=== PATIENT | male | born 1950 | race Hispanic/Latino ===

== ENCOUNTER → 2017-11-29 | Outpatient (CLI) | payer MEDICARE ==
[~2017-11-29] MED LIST: CLONIDINE HCL0.1 MG PO; DIOVAN HCT 3201 EACH PO; METOPROLOL TAR100 MG PO
[2017-11-29 13:15] LABS: BASOPHILS # (AUTO) 0.1 (0.0-0.1); BASOPHILS % 0.9 % (0.0-1.0); EOSINOPHILS # (AUTO) 0.2 (0.0-0.4); EOSINOPHILS % 1.8 % (0.0-6.0); HEMATOCRIT 42.3 % (38.2-49.6); HEMOGLOBIN 14.4 g/dL (14.0-18.0); LYMPHOCYTES # (AUTO) 1.7 (1.0-3.2); LYMPHOCYTES % 20.5 % (18.0-39.1); MEAN CORPUSCULAR HEMOGLOBIN 31.5 pg (28-32); MEAN CORPUSCULAR VOLUME 92.6 fL (81-99); MONOCYTES # (AUTO) 0.9 (0.2-0.8); NEUTROPHILS # (AUTO) 5.3 (2.1-6.9); NEUTROPHILS % 64.9 % (38.7-80.0); PLATELET COUNT 246 x10e3/uL (140-360); RED BLOOD COUNT 4.57 x10e6/uL (4.3-5.7)
[2017-11-29 13:42] LABS: ANION GAP 13.6 mmol/L (8-16); CALCIUM 9.3 mg/dL (8.4-10.2); CREATININE, SERUM 1.48 mg/dL (0.72-1.25); POTASSIUM 3.6 mmol/L (3.5-5.1)
--- NOTE | 2017-11-29 14:09 | Diagnostic Imaging Report ---
PROCEDURE: Frontal and lateral views of the chest. COMPARISON: None. INDICATIONS: PRE OPERATIVE CHEST X-RAY FOR TIBIA FRACTURE FINDINGS: Lines/tubes: None. Lungs: The lungs are well inflated and clear. Central vascular congestion. Pleura: There is no pleural effusion or pneumothorax. Heart and mediastinum: Mildly enlarged cardiomediastinal silhouette. Bones: No acute bony abnormality. IMPRESSION: Mildly enlarged cardiomediastinal silhouette and central vascular congestion. Dictated by: Mich More M.D. on 11/29/2017 at 14:17 Electronically approved by: Mich More M.D. on 11/29/2017 at 14:17
--- NOTE | 2017-12-17 13:27 | Discharge Summary ---
CHIEF COMPLAINT: Right knee pain. HISTORY OF PRESENT ILLNESS: This patient is a 67-year-old male who complains of right knee pain since falling on November 19, 2017. His x-rays show a nondisplaced fracture of the proximal tibial shaft. The options were discussed with the patient. The risks and benefits of an open reduction and internal fixation were discussed. The patient states he understands and wishes to proceed. HOSPITAL COURSE: The patient underwent open reduction and internal fixation of the right proximal tibia without complications. He was then transferred to the recovery room in stable condition. He was able to be discharged from the recovery room after adequate pain control and sent home. PRINCIPAL DIAGNOSIS: Right proximal tibia fracture. PRINCIPAL PROCEDURE: Open reduction and internal fixation of the right tibia. DISCHARGE INSTRUCTIONS: The patient was discharged home. He was to be touchdown weightbearing with a walker and wear a hinged knee brace. He was to resume all his home medications as directed. He was to follow up in our office in roughly 8 to 10 days. Dictated by: Prashant Napoles PA-C LARISSA BRIGHT MD Job#: [id number] EV
== END ==
LOC: RAD 12:00 → OR 11-30 09:53 → EDSTATUS 11-30 12:00
PROVIDERS: ATTEND Specialist
DX: Z01.818 Encounter for other preprocedural examination (principal); S82.234A Nondisplaced oblique fracture of shaft of right tibia, initial encounter for closed fracture; Z53.8 Procedure and treatment not carried out for other reasons
CPT/HCPCS: 36415; 71020; 80048; 85025; 93005

== ENCOUNTER → 2017-12-14 | Day surgery (SDC) | payer MEDICARE ==
[~2017-12-14] MED LIST changes: +BUPIVACAINE HCL 0.5% INJ 30 ML VIAL INJ ONE; +CEFAZOLIN SOD 1 GM VIAL ONE; +DEXAMETHASONE SOD PHOS INJ 4 MG/ML VIAL ONE; +FENTANYL CITRATE/PF 100MCG/2 ML INJ ONE; +LIDOCAINE HCL 2% LOCAL INJ 5 ML SDV VIAL INJ ONE; +MIDAZOLAM HCL 2 MG/2 ML VIAL ONE; +MORPHINE SULFATE INJ 10 MG/ML ONE; +NEOSTIGMINE 1 MG/ML 10ML VIAL ONE; +ONDANSETRON HCL INJ 2 MG/ML VIAL ONE; +PROPOFOL IV EMULSION 10 MG/ML 20 ML VIAL ONE; +SEVOFLURANE INHAL SOLN 250 ML PEN BTL ONE
--- NOTE | 2017-12-15 17:35 | Operative Report ---
DATE OF PROCEDURE: December 14, 2017 HOUSE NURSE: Prashant Napoles PA-C The patient was brought to the operating room for induction of anesthesia. Throughout this case, my PA's assistance was necessary for retraction of soft tissue and positioning of the extremity. This allows for efficient and technically successful execution of the operation and is considered medically necessary. PREOPERATIVE DIAGNOSIS: Right proximal tibia fracture. POSTOPERATIVE DIAGNOSIS: Right proximal tibia fracture. PROCEDURE: Open reduction and internal fixation right proximal tibia. INDICATIONS: The patient is a 67-year-old gentleman who sustained a fracture of his right proximal tibia. The findings and options were discussed. This was a nondisplaced fracture. The risks for displacement were discussed. The patient wished to proceed with an open reduction with internal fixation. He initially had this scheduled and was postponed due to cardiac arrhythmia. He has been cleared from a cardiac standpoint. The options were again discussed. I have explained the surgery is not entirely necessary in the absence of any displacement. The risk of displacement particularly concerns the patient with any mobilization. He does not wish to be in any type of long-leg cast. We plan on open reduction with internal fixation. DESCRIPTION OF PROCEDURE: The patient was brought to the operating room and placed under general anesthetic. His right lower extremity was prepped and draped in a sterile manner. A preoperative time out was performed. The extremity was exsanguinated, and a proximal tourniquet was inflated to 300 mmHg. A curvilinear incision was made over the proximal lateral aspect of the right tibia. The anterior compartment muscles were elevated off of the tibial spine. A [employer] periarticular locking plate was placed onto the proximal tibia. The positioning was checked with a C-arm image intensifier. This was locked with a combination of compression and locking screws. Intraoperative x-rays confirmed anatomic reduction and good placement of the hardware. The wound was irrigated. The fascia was reapproximated with 0 Vicryl. The skin was closed with subcuticular Vicryl and asia. A sterile bandage was applied. The patient was extubated and transported to the recovery room in stable condition. Job#: [id number] EV
--- NOTE | 2017-12-21 18:25 | Discharge Summary ---
CHIEF COMPLAINT: Right knee pain. HISTORY OF PRESENT ILLNESS: This patient is a 67-year-old male who complains of right knee pain since falling on November 19, 2017. His x-rays show a nondisplaced fracture of the proximal tibial shaft. The options were discussed with the patient. The risks and benefits of an open reduction and internal fixation were discussed. The patient states he understands and wishes to proceed. HOSPITAL COURSE: The patient underwent open reduction and internal fixation of the right proximal tibia without complications. He was then transferred to the recovery room in stable condition. He was able to be discharged from the recovery room after adequate pain control and sent home. PRINCIPAL DIAGNOSIS: Right proximal tibia fracture. PRINCIPAL PROCEDURE: Open reduction and internal fixation of the right tibia. DISCHARGE INSTRUCTIONS: The patient was discharged home. He was to be touchdown weightbearing with a walker and wear a hinged knee brace. He was to resume all his home medications as directed. He was to follow up in our office in roughly 8 to 10 days. Dictated by: Prashant Napoles PA-C LARISSA BRIGHT MD Job#: [id number]
== END | disposition home or self-care (01) ==
LOC: OR 05:18
PROVIDERS: ATTEND Specialist
DX: S82.234A Nondisplaced oblique fracture of shaft of right tibia, initial encounter for closed fracture (principal); I10 Essential (primary) hypertension; I48.91 Unspecified atrial fibrillation; W03.XXXA Other fall on same level due to collision with another person, initial encounter; Z87.01 Personal history of pneumonia (recurrent); Z87.891 Personal history of nicotine dependence
CPT/HCPCS: 27535; 76000; C1713 ×5; J0690; J1100; J2001; J2250; J2270; J2405; J2710

== ENCOUNTER → 2021-06-05 | Outpatient (CLI) | payer MEDICARE ==
[~2021-06-05] MED LIST changes: -BUPIVACAINE HCL 0.5% INJ 30 ML VIAL INJ ONE; -CEFAZOLIN SOD 1 GM VIAL ONE; -DEXAMETHASONE SOD PHOS INJ 4 MG/ML VIAL ONE; -FENTANYL CITRATE/PF 100MCG/2 ML INJ ONE; -LIDOCAINE HCL 2% LOCAL INJ 5 ML SDV VIAL INJ ONE; -MIDAZOLAM HCL 2 MG/2 ML VIAL ONE; -MORPHINE SULFATE INJ 10 MG/ML ONE; -NEOSTIGMINE 1 MG/ML 10ML VIAL ONE; -ONDANSETRON HCL INJ 2 MG/ML VIAL ONE; -PROPOFOL IV EMULSION 10 MG/ML 20 ML VIAL ONE; +REGADENOSON 0.4 MG/5 ML SYR IV ONE; -SEVOFLURANE INHAL SOLN 250 ML PEN BTL ONE
== END ==
LOC: NM 08:38
PROVIDERS: ATTEND Nurse Practitioner Family
DX: I20.8 Other forms of angina pectoris (principal); I10 Essential (primary) hypertension; I48.91 Unspecified atrial fibrillation
CPT/HCPCS: 78452; 93017; A9502; J2785

== ENCOUNTER 2024-11-02 09:53 | Day surgery (SDC) | payer MEDICARE ==
[2024-11-01 12:11] LABS: BASOPHILS # (AUTO) 0.1 (0.0-0.1); BASOPHILS % 0.9 % (0.0-1.0); EOSINOPHILS # (AUTO) 0.2 (0.0-0.4); EOSINOPHILS % 2.6 % (0.0-6.0); HEMATOCRIT 42.8 % (38.2-49.6); HEMOGLOBIN 13.7 g/dL (14.0-18.0); LYMPHOCYTES # (AUTO) 2.3 (1.0-3.2); LYMPHOCYTES % 24.6 % (18.0-39.1); MEAN CORPUSCULAR HEMOGLOBIN 29.8 pg (28-32); MONOCYTES % 10.3 % (4.4-11.3); NEUTROPHILS # (AUTO) 5.7 (2.1-6.9); NEUTROPHILS % 61.3 % (38.7-80.0); PLATELET COUNT 178 x10e3/uL (140-360); RED CELL DISTRIBUTION WIDTH 14.9 % (11.7-14.4); WHITE BLOOD COUNT 9.34 x10e3/uL (4.8-10.8)
[2024-11-01 12:39] LABS: ANION GAP 15.9 mmol/L (8-16); CALCIUM 9.4 mg/dL (8.4-10.2); CREATININE, SERUM 1.48 mg/dL (0.72-1.25); POTASSIUM 3.9 mmol/L (3.5-5.1)
[~2024-11-02] VITALS: Ht 177.8 cm; Wt 104.3 kg
[2024-11-02] VITALS (12 sets, daily range): BP systolic 106–152; BP diastolic 62–84; PULSE 52–66; RESP 15–27; TEMP 97–97.6; O2SAT 96–100
[~2024-11-02 09:53] MED LIST changes: +DIOVAN160 MG PO; +ELIQUIS5 MG PO; +HYDROCHLOROTHIA25 MG PO; +IRBESARTAN150 MG PO; +JULUCA 50-25 M1 EACH PO; +NIFEDIPINE ER30 M1 PO; +PRAVASTATIN SOD40 MG PO; -REGADENOSON 0.4 MG/5 ML SYR IV ONE; +SYNTHROID50 MCG PO
[2024-11-02] MEDS ORDERED: SODIUM CHLORIDE 0.9% 1000ML 1,000 ML ONE (12:07)
[2024-11-02] MEDS ORDERED: BENZOCAINE 20% SPR 60 ML CAN ONE (12:07)
[2024-11-02] MEDS ORDERED: LIDOCAINE HCL 2% LOCAL INJ 5 ML SDV VIAL INJ ONE ×2 (12:09→12:11)
[2024-11-02] MEDS ORDERED: PROPOFOL IV EMULSION 50 ML IV ONE (12:09)
[2024-11-02] MEDS ORDERED: PROPOFOL IV EMULSION 10 MG/ML 20 ML VIAL ONE (12:09)
[2024-11-02] MEDS ORDERED: GLYCOPYRROLATE INJ 0.2 MG/ML VIAL ONE (12:22)
[2024-11-02] MEDS ORDERED: PHENYLEPHRINE HCL 1% 10 MG/ML VIAL ONE (12:22)
[2024-11-02] MEDS ORDERED: KETAMINE 50MG/5ML SYR ONE (12:24)
== END 2024-11-02 15:05 | disposition home or self-care (01) ==
LOC: CATH LAB 09:53 → EDSTATUS 12:30 → CATH LAB 15:05
PROVIDERS: ATTEND Internal Medicine Interventional Cardiology
DX: I48.91 Unspecified atrial fibrillation (principal); I10 Essential (primary) hypertension; E66.9 Obesity, unspecified; Z95.818 Presence of other cardiac implants and grafts; Z01.812 Encounter for preprocedural laboratory examination; Z79.02 Long term (current) use of antithrombotics/antiplatelets; Z79.899 Other long term (current) drug therapy; Z68.33 Body mass index [BMI] 33.0-33.9, adult
CPT/HCPCS: 36415; 80048; 85025; 93320; 93325; C8925; J2003; J2371; J2704; J7030; 93307; 93312

== ENCOUNTER → 2024-12-11 | Outpatient (REF) | payer MEDICARE ==
[~2024-12-11] VITALS: Ht 177.8 cm; Wt 103.4 kg
[~2024-12-11] MED LIST changes: +BENZOCAINE 20% SPR 60 ML CAN ONE; +SODIUM CHLORIDE 0.9% 1000ML 0 ML ONE; +WARFARIN SODIUM5 MG PO
[2024-12-11 11:13] LABS: BASOPHILS # (AUTO) 0.1 (0.0-0.1); BASOPHILS % 1.2 % (0.0-1.0); EOSINOPHILS # (AUTO) 0.3 (0.0-0.4); HEMATOCRIT 46.4 % (38.2-49.6); HEMOGLOBIN 14.5 g/dL (14.0-18.0); LYMPHOCYTES # (AUTO) 2.3 (1.0-3.2); LYMPHOCYTES % 23.9 % (18.0-39.1); MEAN CORPUSCULAR HEMOGLOBIN 29.5 pg (28-32); MEAN CORPUSCULAR HGB CONC 31.3 g/dL (31-35); MEAN CORPUSCULAR VOLUME 94.5 fL (81-99); MONOCYTES # (AUTO) 1.2 (0.2-0.8); MONOCYTES % 12.3 % (4.4-11.3); NEUTROPHILS # (AUTO) 5.6 (2.1-6.9); NEUTROPHILS % 59.3 % (38.7-80.0); PLATELET COUNT 189 x10e3/uL (140-360); RED BLOOD COUNT 4.91 x10e6/uL (4.3-5.7); RED CELL DISTRIBUTION WIDTH 14.1 % (11.7-14.4); WHITE BLOOD COUNT 9.44 x10e3/uL (4.8-10.8)
[2024-12-11 12:03] LABS: ALBUMIN 4.3 g/dL (3.5-5.0); ANION GAP 19.7 mmol/L (8-16); BILIRUBIN,TOTAL 0.9 mg/dL (0.2-1.2); CALCIUM 9.9 mg/dL (8.4-10.2); CREATININE, SERUM 1.56 mg/dL (0.72-1.25); POTASSIUM 3.7 mmol/L (3.5-5.1); TOTAL PROTEIN 8.7 g/dL (6.5-8.1)
== END | disposition home or self-care (01) ==
LOC: LAB 05:00 → CATH LAB 12-13 10:13 → EDSTATUS 12-13 12:00
PROVIDERS: ATTEND Internal Medicine Interventional Cardiology
DX: I48.91 Unspecified atrial fibrillation (principal); Z53.9 Procedure and treatment not carried out, unspecified reason
CPT/HCPCS: 36415; 80053; 85025; J7030

== ENCOUNTER 2024-12-27 10:20 | Day surgery (SDC) | payer MEDICARE ==
[~2024-12-27] VITALS: Ht 177.8 cm; Wt 103.4 kg
[2024-12-27] VITALS (7 sets, daily range): BP systolic 136–157; BP diastolic 59–89; PULSE 46–50; RESP 15–23; TEMP 97.5–98.3; O2SAT 94–98
[~2024-12-27 10:20] MED LIST changes: -BENZOCAINE 20% SPR 60 ML CAN ONE; -SODIUM CHLORIDE 0.9% 1000ML 0 ML ONE
[2024-12-27] MEDS ORDERED: BENZOCAINE 20% SPR 60 ML CAN ONE (10:45)
[2024-12-27] MEDS ORDERED: SODIUM CHLORIDE 0.9% 1000ML 1,000 ML ONE (10:45)
[2024-12-27] MEDS ORDERED: MIDAZOLAM HCL 2 MG/2 ML VIAL ONE ×2 (12:32→12:47)
[2024-12-27] MEDS ORDERED: FENTANYL CITRATE/PF 100MCG/2 ML INJ ONE (12:32)
[2024-12-27] MEDS ORDERED: ATROPINE SULFATE 0.1 MG/ML 10ML SYR ONE (12:44)
== END 2024-12-27 14:05 | disposition home or self-care (01) ==
LOC: CATH LAB 10:20
PROVIDERS: ATTEND Internal Medicine Interventional Cardiology
DX: I48.91 Unspecified atrial fibrillation (principal); I51.3 Intracardiac thrombosis, not elsewhere classified; I35.8 Other nonrheumatic aortic valve disorders; I34.0 Nonrheumatic mitral (valve) insufficiency; I10 Essential (primary) hypertension; E78.2 Mixed hyperlipidemia; Z45.09 Encounter for adjustment and management of other cardiac device; E66.9 Obesity, unspecified; Z79.01 Long term (current) use of anticoagulants; Z79.899 Other long term (current) drug therapy; Z68.32 Body mass index [BMI] 32.0-32.9, adult
CPT/HCPCS: 93320; 93325; C8925; J2250; J3010; J7030; 93307; 93312; 93355; 99152; 99153